=== PATIENT | male | born 1970 | race Caucasian/White ===

== ENCOUNTER 2018-08-06 14:11 | Observation (INO) | payer OTHER ==
[2018-08-06 14:55] LABS: Basophils % (A) 0 %; Eosinophils # (A) 0.2 k/uL (0-0.7); Eosinophils % (A) 4 %; HCT 48.2 % (39.0-53.0); HGB 17.4 gm/dL (13.0-17.5); Lymphocytes # (A) 1.1 k/uL (1.0-4.8); Lymphocytes % (A) 22 %; MCH 31.7 pg (25.0-35.0); MCHC 36.1 g/dL (31.0-37.0); MCV 87.7 fL (80.0-100.0); Mean Platelet Volume 6.8; Monocytes # (A) 0.3 k/uL (0-1.0); Monocytes % (A) 5 %; Neutrophils # (A) 3.4 k/uL (1.3-7.7); Neutrophils % (A) 68 %; Platelet Count 145 k/uL (150-450); RDW 12.4 % (11.5-15.5); WBC 5.1 k/uL (3.8-10.6)
[2018-08-06] MEDS ORDERED: ASPIRIN 325 MG TAB PO STA (15:02)
[2018-08-06 15:07] LABS: ALT 47 U/L (21-72); AST 28 U/L (17-59); Albumin 4.4 g/dL (3.5-5.0); Alkaline Phosphatase 46 U/L (38-126); Anion Gap 8 mmol/L; Blood Urea Nitrogen 14 mg/dL (9-20); Calcium 9.4 mg/dL (8.4-10.2); Carbon Dioxide 26 mmol/L (22-30); Chloride 107 mmol/L (98-107); Glucose 144 mg/dL (74-99); Magnesium 2.1 mg/dL (1.6-2.3); Potassium 4.1 mmol/L (3.5-5.1); Sodium 141 mmol/L (137-145); Total Bilirubin 0.8 mg/dL (0.2-1.3); Total Protein 7.4 g/dL (6.3-8.2)
[2018-08-06 15:08] LABS: Partial Thromboplastin Time 24.2 sec (22.0-30.0)
[2018-08-06 15:16] LABS: Creatine Kinase 46 U/L (55-170)
--- NOTE | 2018-08-06 15:23 | XR ---
EXAMINATION TYPE: XR chest 2V DATE OF EXAM: 08/06/2018 COMPARISON: NONE HISTORY: Chest pain TECHNIQUE: Frontal and lateral views of the chest are obtained. FINDINGS: There is no focal air space opacity, pleural effusion, or pneumothorax seen. The cardiac silhouette size is within normal limits. The osseous structures are intact. IMPRESSION: No acute cardiopulmonary process.
[2018-08-06 15:29] LABS: Creatine Kinase MB 0.5 ng/mL (0.0-2.4); Troponin I <0.012 ng/mL (0.000-0.034)
--- NOTE | 2018-08-06 15:51 | ED ---
Chest Pain HPI - General Source: patient, RN notes reviewed, old records reviewed Mode of arrival: ambulatory Limitations: no limitations <Marla Al - Last Filed: 08/06/18 17:55> <Pablo Garland - Last Filed: 08/06/18 18:16> - General Chief Complaint: Chest Pain Stated Complaint: Chest pressure/lt arm pain Time Seen by Provider: 08/06/18 14:52 - History of Present Illness Initial Comments: 40-year-old male presents emergency department today with 2 days of dizziness, complaints of chest pain, pain range on the left arm. He reports he's also had some visual changes complained of intermittent blurry vision. Patient states that he's had no recent fevers or chills. He denies any cough. Patient states that he has a family history of heart disease. He is a smoker. He reports that he has history of high cholesterol but has been off of his high cholesterol medication for quite some time. (Marla Al) - Related Data Home Medications Medication Instructions Recorded Confirmed Aspirin [[place] Aspirin EC] 81 mg PO DAILY 08/06/18 08/06/18 Ibuprofen [Motrin Ib] 600 mg PO Q8HR 08/06/18 08/06/18 Ketoconazole 2% Cream [Nizoral 2%] 1 applic TOPICAL DAILY PRN 08/06/18 08/06/18 Allergies Allergy/AdvReac Type Severity Reaction Status Date / Time gel capsules AdvReac Abdominal Uncoded 08/06/18 14:20 Pain Review of Systems ROS Other: All systems not noted in ROS Statement are negative. <Marla Al - Last Filed: 08/06/18 17:55> ROS Other: All systems not noted in ROS Statement are negative. <Pablo Garland - Last Filed: 08/06/18 18:16> ROS Statement: Those systems with pertinent positive or pertinent negative responses have been documented in the HPI. EKG Findings - EKG Comments: EKG Findings:: EKG performed at 1420 and she was sinus tachycardia, right superior axis deviation. Clear brownish black. No specific ST-T wave antibiotic. Given normal EKG noted. Ventricular rate of 103 bpm. Was 192. QRS duration 80 ms. QT QTc is 352/461 ms. <Marla Al - Last Filed: 08/06/18 17:55> Past Medical History Past Medical History: No Reported History History of Any Multi-Drug Resistant Organisms: None Reported Past Surgical History: No Surgical Hx Reported Past Psychological History: No Psychological Hx Reported Smoking Status: Never smoker Past Alcohol Use History: Occasional Past Drug Use History: None Reported <Marcelle Alily - Last Filed: 08/06/18 17:55> General Exam Limitations: no limitations General appearance: alert, in no apparent distress Head exam: Present: atraumatic, normocephalic, normal inspection Eye exam: Present: normal appearance, PERRL, EOMI. Absent: scleral icterus, conjunctival injection, periorbital swelling ENT exam: Present: normal exam, mucous membranes moist Neck exam: Present: normal inspection. Absent: tenderness, meningismus, lymphadenopathy Respiratory exam: Present: normal lung sounds bilaterally Cardiovascular Exam: Present: regular rate, normal rhythm, normal heart sounds. Absent: systolic murmur, diastolic murmur, rubs, gallop, clicks GI/Abdominal exam: Present: soft, normal bowel sounds. Absent: distended, tenderness, guarding, rebound, rigid Extremities exam: Present: normal inspection, full ROM, normal capillary refill. Absent: tenderness, pedal edema, joint swelling, calf tenderness Back exam: Present: normal inspection Neurological exam: Present: alert, oriented X3, CN II-XII intact Psychiatric exam: Present: normal affect, normal mood Skin exam: Present: warm, dry, intact, normal color. 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 Patient did present with complaints of intermittent episodes of chest pain with some apparent radiation to left arm. He currently is pain-free. He does have a history of high cholesterol high triglycerides. He denies history of smoking. He does have a family history of cardiovascular disease. I do agree with the assessment and plan patient will be admitted for evaluation of chest pain. Cardiology will be consulted. I did discuss case with Dr. chiu (Pablo Garland) Chest Pain [facility] <Marla Al - Last Filed: 08/06/18 17:55> <Pablo Garland - Last Filed: 08/06/18 18:16> - MDM 40-year-old male presents return today for chest pain, states pains draining out his arm. Positive risk factors including hypercholesterol, history of smoking. Family history of heart disease. This time troponin is negative. He also complained of some blurry vision. CT of the brain was completed. This is negative for any acute process. Discussed with Hawk warner the Patient further evaluation due to chest pain. In consult to cardiology. Brain computed tomography scan for any acute process. Chest x-rays negative for any acute cardio pulmonary process. (Marla Al) Disposition Is patient prescribed a controlled substance at d/c from ED?: No Time of Disposition: 17:56 <Mrala Al - Last Filed: 08/06/18 17:55> <Pablo Garland - Last Filed: 08/06/18 18:16> Clinical Impression: Chest pain Disposition: ADMITTED IP TO THIS [facility] Condition: Stable Referrals: Nonstaff,Physician [Primary Care Provider] - 1-2 days
[2018-08-06] MEDS: SODIUM CHLORIDE 0.9% 1,000 ML IV SCH (16:10)
--- NOTE | 2018-08-06 16:14 | CT ---
EXAMINATION TYPE: CT brain wo con DATE OF EXAM: 08/06/2018 COMPARISON: None HISTORY: 48-year-old male Vision changes, left arm numbness and hypertension. TECHNIQUE: Examination was done in axial plane without intravenous contrast. Coronal and sagittal r econstructions performed. CT DLP: 1129.4 mGycm Automated exposure control for dose reduction was used. FINDINGS: There is no evidence of acute intracranial hemorrhage, acute ischemic changes, mass, mass-effect, or extra-axial fluid collection. There is no effacement of cerebral sulci or basal subarachnoid cister ns. There is no hydrocephalus. There is no midline shift. White-white matter distinction is preserv ed. 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 Trace mucosal thickening right maxillary sinus and additional trace mucosal thickening scattered thro ughout the ethmoid air cells. Orbits and globes are intact. IMPRESSION: No acute intracranial abnormality seen. If there are focal neurologic deficits which persist, conside r follow-up CT or MRI.
[2018-08-06] MEDS ORDERED: NITROGLYCERIN SL TABS 0.4 MG TAB SUBLINGUAL PRN (17:57)
[2018-08-06] MEDS ORDERED: HEPARIN SOD,PORK IN 0.45% NACL 25,000 UNIT in 0.45% NACL 1 500ML.BAG IV SCH ×2 (18:00→18:30)
[2018-08-06] MEDS ORDERED: HEPARIN SODIUM,PORCINE 5,000 UNIT/ML 1 ML VIAL IV PRN (18:23)
[2018-08-06] MEDS ORDERED: HEPARIN SODIUM,PORCINE 5,000 UNIT/ML 1 ML VIAL IV ONE (18:23)
[2018-08-06 20:04] VITALS: RESP 18
[2018-08-06 20:12] VITALS: BMI 31.3
[2018-08-06 20:46] LABS: Basophils % (A) 1 %; Eosinophils # (A) 0.2 k/uL (0-0.7); Eosinophils % (A) 3 %; HCT 49.2 % (39.0-53.0); HGB 16.2 gm/dL (13.0-17.5); Lymphocytes # (A) 2.1 k/uL (1.0-4.8); Lymphocytes % (A) 31 %; MCHC 32.9 g/dL (31.0-37.0); Mean Platelet Volume 7.5; Monocytes # (A) 0.3 k/uL (0-1.0); Monocytes % (A) 5 %; Neutrophils # (A) 3.9 k/uL (1.3-7.7); Neutrophils % (A) 59 %; Platelet Count 165 k/uL (150-450); RDW 12.9 % (11.5-15.5); WBC 6.6 k/uL (3.8-10.6)
[2018-08-06 20:57] LABS: INR 1.1 (<1.2); Partial Thromboplastin Time 50.8 sec (22.0-30.0); Prothrombin Time 10.5 sec (9.0-12.0)
[2018-08-06 21:07] LABS: Creatine Kinase 44 U/L (55-170)
[2018-08-06 21:21] LABS: Creatine Kinase MB 0.4 ng/mL (0.0-2.4); Troponin I <0.012 ng/mL (0.000-0.034)
[2018-08-07 00:52] LABS: Creatine Kinase 42 U/L (55-170)
[2018-08-07 01:06] LABS: Creatine Kinase MB 0.3 ng/mL (0.0-2.4); Troponin I <0.012 ng/mL (0.000-0.034)
[2018-08-07] MEDS: SODIUM CHLORIDE 0.9% 1,000 ML IV SCH (02:39)
[2018-08-07 03:41] LABS: Appearance,Urine Cloudy (Clear); Bilirubin,Urine Negative (Negative); Blood,Urine Negative (Negative); Color,Urine Yellow; Glucose,Urine (UA) Negative (Negative); Ketones,Urine Negative (Negative); Leukocyte Esterase,Urine Negative (Negative); Mucus,Urine Many /hpf; Nitrite,Urine Negative (Negative); Protein,Urine 1+ (Negative); RBC,Urine 3 /hpf (0-5); Specific Gravity,Urine 1.027 (1.001-1.035); WBC,Urine 1 /hpf (0-5)
[2018-08-07] MEDS: ACETAMINOPHEN TAB 325 MG TAB PO PRN ×2 (06:05→12:20)
[2018-08-07 07:17] LABS: Basophils % (A) 1 %; Eosinophils # (A) 0.1 k/uL (0-0.7); Eosinophils % (A) 2 %; HCT 48.9 % (39.0-53.0); Lymphocytes # (A) 1.7 k/uL (1.0-4.8); Lymphocytes % (A) 29 %; MCHC 32.8 g/dL (31.0-37.0); MCV 91.5 fL (80.0-100.0); Mean Platelet Volume 7.9; Monocytes # (A) 0.3 k/uL (0-1.0); Monocytes % (A) 5 %; Neutrophils # (A) 3.5 k/uL (1.3-7.7); Neutrophils % (A) 61 %; Platelet Count 164 k/uL (150-450); RBC 5.34 m/uL (4.30-5.90); RDW 12.7 % (11.5-15.5); WBC 5.8 k/uL (3.8-10.6)
[2018-08-07 07:39] LABS: Cholesterol 209 mg/dL (<200); HDL Cholesterol 25 mg/dL (40-60); LDL Cholesterol,Calculated 121 mg/dL (0-99); Triglycerides 314 mg/dL (<150)
[2018-08-07] MEDS ORDERED: ASPIRIN 325 MG TAB PO SCH (09:00)
--- NOTE | 2018-08-07 09:58 | P.CRDCN ---
History of Present Illness History of present illness: This is a pleasant 48-year-old male past medical history significant for dyslipidemia and migraine headaches. He denies history of coronary artery disease, hypertension or diabetes mellitus. 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 We have been asked to see him in consultation for chest pain. He states for the last couple of days he has been feeling intermittently dizzy. Then yesterday he started feeling like his vision in his left eye was altered and blurry. He became alarmed he may be having a stroke due to his mother having had one that started with vision changes. He checked his bp at home and it was 135/88 which he feels is high for him sine his baseline is 118/70's. Subsequently thereafter, he started feeling a pressure in his mid-sternal region with radiation to the left precordial region and tingling down the left arm. His discomfort lasted less than a minute but returned last night across the upper chest. He continues to have pressure in the chest at the time of my exam that has not subsided. He also complains of an ongoing headache and pressure behind his eyes. He denies shortness of breath, nausea, vomiting, palpitations or diaphoresis. He also denies PND, orthopnea, cough, fever or chills. EKG reveals sinus mechanism heart rate 103 with incomplete right bundle branch block. No old EKG. Chest xray negative for an acute cardiopulmonary process. CT brain negative for an acute intracranial process. Laboratory data reviewed, WBC 5.8, hemoglobin 16, platelets 164, sodium 141, potassium 4.1, creatinine 0.74, magnesium 2.1, cardiac enzymes negative 3, LDL 121, HDL 25, triglycerides 314 and total cholesterol 209. He takes no cardiac medications. Risk factors for coronary artery disease include dyslipidemia. At the time of my exam: CONSTITUTIONAL: Denies fever. Denies chills. EYES: Denies blurred vision. Denies vision changes. Denies eye pain. EARS, NOSE, MOUTH & THROAT: Denies headache. Denies sore throat. Denies ear pain. CARDIOVASCULAR: Denies chest pain. Denies shortness of breath. Denies orthopnea. Denies PND. Denies palpitations. RESPIRATORY: Denies cough. GASTROINTESTINAL: Denies abdominal pain. Denies diarrhea. Denies constipation. Denies nausea. Denies vomiting. MUSCULOSKELETAL: Denies myalgias. INTEGUMENTARY: Denies pruitis. Denies rash. NEUROLOGIC: Denies numbness. Denies tingling. Denies weakness. PSYCHIATRIC: Denies anxiety. Denies depression. ENDOCRINE: Denies fatigue. Denies weight change. Denies polydipsia. Denies polyurina. GENITOURINARY: Denies burning, hematuria or urgency with micturation. HEMATOLOGIC: Denies history of anemia. Denies bleeding. Blood pressure 131/63 heart rate 91 afebrile maintaining oxygen saturation on room air GENERAL: This is a 48-year-old male in no apparent distress at the time of my examination. HEENT: Head is atraumatic, normocephalic. Pupils are equal, round. Sclerae anicteric. Conjunctivae are clear. Mucous membranes of the mouth are moist. Neck is supple. There is no jugular venous distention. No carotid bruit is heard. LUNGS: Clear to auscultation no wheezes, rales or rhonchi. No chest wall tenderness is noted on palpation or with deep breathing. HEART: Regular rate and rhythm without murmurs, rubs or gallops. S1 and S2 heard. ABDOMEN: Soft, nontender. Bowel sounds are heard. No organomegaly noted. EXTREMITIES: No evidence of peripheral edema and no calf tenderness noted. VASCULAR: Radial and dorsalis pedis pulses palpated, no evidence of clubbing. NEUROLOGIC: Patient is awake, alert and oriented x3. ASSESSMENT Chest pain, atypical. An acute coronary event has been ruled out with no EKG evidence of ischemia and negative cardiac enzymes. Headache and visual disturbances Dyslipidemia, uncontrolled. Unable to tolerate lipitor in the past PLAN An acute coronary event has been ruled out with no EKG evidence of ischemia and negative cardiac enzymes. Obtain stress echocardiogram to assess for stress induced cardiac ischemia. If stress test is normal he is stable from a cardiac perspective. Lifestyle modifications recommended for lowering of LDL cholesterol. Ongoing medical management of neurologic symptoms. Thank you kindly for this consultation. Nurse Practitioner note has been reviewed, I agree with a documented findings and plan of care. Patient was seen and examined. Past Medical History Past Medical History: No Reported History Additional Past Medical History / Comment(s): migraines History of Any Multi-Drug Resistant Organisms: None Reported Past Surgical History: No Surgical Hx Reported Smoking Status: Never smoker - Past Family History Mother Family Medical History: CVA/TIA, Hyperlipidemia, Hypertension Father Family Medical History: Unable to Obtain Medications and Allergies Home Medications Medication Instructions Recorded Confirmed Type Aspirin [[place] Aspirin EC] 81 mg PO DAILY 08/06/18 08/06/18 History Ibuprofen [Motrin Ib] 600 mg PO Q8HR 08/06/18 08/06/18 History Ketoconazole 2% Cream [Nizoral 2%] 1 applic TOPICAL DAILY PRN 08/06/18 08/06/18 History Allergies Allergy/AdvReac Type Severity Reaction Status Date / Time gel capsules AdvReac Abdominal Uncoded 08/06/18 19:58 Pain Physical Exam Vitals: Vital Signs Temp Pulse Pulse Pulse Resp BP BP 08/07/18 07:25 97.8 F 91 18 131/63 08/07/18 04:00 18 08/07/18 03:40 97.3 F L 88 18 115/79 08/07/18 00:00 18 08/06/18 23:30 97.5 F L 90 18 135/76 08/06/18 20:00 18 08/06/18 19:15 98.4 F 86 18 140/89 08/06/18 18:57 85 16 120/93 08/06/18 18:00 87 16 129/99 08/06/18 17:00 90 16 129/93 08/06/18 16:12 20 08/06/18 14:34 94 08/06/18 14:16 99.1 F 102 H 18 131/86 Pulse Ox 08/07/18 07:25 96 08/07/18 04:00 08/07/18 03:40 95 08/07/18 00:00 08/06/18 23:30 97 08/06/18 20:00 08/06/18 19:15 96 08/06/18 18:57 97 08/06/18 18:00 97 08/06/18 17:00 96 08/06/18 16:12 98 08/06/18 14:34 08/06/18 14:16 100 Intake and Output 08/06/18 08/07/18 08/07/18 22:59 06:59 14:59 Intake Total 156.234 Balance 156.234 Intake: Intake, IV Titration 156.234 Amount Heparin Sod,Pork in 0.45% 156.234 NaCl 25,000 unit In 0.45 % NaCl 1 500ml.bag @ 9.6 UNITS/KG/HR 20.03 mls/hr IV .Q24H [facility] Rx#: [id number] Other: # Voids 1 Weight 101.9 kg Results 08/07/18 07:02 08/06/18 14:40 Cardiac Enzymes 08/06/18 08/06/18 08/06/18 Range/Units 14:40 14:40 20:31 AST 28 (17-59) U/L CK-MB (CK-2) 0.5 0.4 (0.0-2.4) ng/mL Troponin I <0.012 <0.012 (0.000-0.034) ng/mL 08/07/18 Range/Units 00:10 AST (17-59) U/L CK-MB (CK-2) 0.3 (0.0-2.4) ng/mL Troponin I <0.012 (0.000-0.034) ng/mL Coagulation 08/06/18 08/06/18 08/07/18 Range/Units 14:40 20:31 00:10 PT 10.0 10.5 (9.0-12.0) sec APTT 24.2 50.8 H 31.8 H (22.0-30.0) sec 08/07/18 Range/Units 07:02 PT (9.0-12.0) sec APTT 33.5 H (22.0-30.0) sec Lipids 08/07/18 Range/Units 07:02 Triglycerides 314 H (<150) mg/dL Cholesterol 209 H (<200) mg/dL HDL Cholesterol 25 L (40-60) mg/dL CBC 08/06/18 08/06/18 08/07/18 Range/Units 14:40 20:31 07:02 WBC 5.1 6.6 5.8 (3.8-10.6) k/uL RBC 5.50 5.40 5.34 (4.30-5.90) m/uL Hgb 17.4 16.2 16.0 (13.0-17.5) gm/dL Hct 48.2 49.2 48.9 (39.0-53.0) % Plt Count 145 L 165 164 (150-450) k/uL Comprehensive Metabolic Panel 08/06/18 Range/Units 14:40 Sodium 141 (137-145) mmol/L Potassium 4.1 (3.5-5.1) mmol/L Chloride 107 (98-107) mmol/L Carbon Dioxide 26 (22-30) mmol/L BUN 14 (9-20) mg/dL Creatinine 0.74 (0.66-1.25) mg/dL Glucose 144 H (74-99) mg/dL Calcium 9.4 (8.4-10.2) mg/dL AST 28 (17-59) U/L ALT 47 (21-72) U/L Alkaline Phosphatase 46 (38-126) U/L Total Protein 7.4 (6.3-8.2) g/dL Albumin 4.4 (3.5-5.0) g/dL Current Medications Generic Name Dose Route Start Last Admin Trade Name Freq PRN Reason Stop Dose Admin Acetaminophen 650 mg 08/06/18 22:34 08/07/18 06:05 Tylenol Tab PO 650 mg Q4HR PRN Administration Fever and/ or Pain Aspirin 325 mg 08/07/18 09:00 Aspirin PO DAILY [facility] Heparin Sodium (Porcine) 0 unit 08/06/18 18:23 Heparin IV PER PROTOCOL PRN Low PTT Protocol Sodium Chloride 1,000 mls @ 100 mls/hr 08/06/18 15:15 08/07/18 02:39 Saline 0.9% IV Not Given .Q10H [facility] Heparin Sodium/Sodium Chloride 500 mls @ 20.03 mls/hr 08/06/18 18:30 02:40 25,000 unit/ Sodium Chloride IV 12.6 units/kg/hr .Q24H [facility] 26.29 mls/hr Titration Protocol 9.6 UNITS/KG/HR Nitroglycerin 0.4 mg 08/06/18 17:57 Nitrostat SUBLINGUAL Q5M PRN Chest Pain Intake and Output 08/06/18 08/07/18 08/07/18 22:59 06:59 14:59 Intake Total 156.234 Balance 156.234 Intake: Intake, IV Titration 156.234 Amount Heparin Sod,Pork in 0.45% 156.234 NaCl 25,000 unit In 0.45 % NaCl 1 500ml.bag @ 9.6 UNITS/KG/HR 20.03 mls/hr IV .Q24H [facility] Rx#: [id number] Other: # Voids 1 Weight 101.9 kg 08/07/18 07:02 08/06/18 14:40
--- NOTE | 2018-08-07 13:10 | ECHOF ---
Referral Reason:cp MEASUREMENTS -------- HEIGHT: 162.6 cm WEIGHT: 101.6 kg BP: 131/63 RVIDd: 2.6 cm (< 3.3) IVSd: 1.0 cm (0.6 - 1.1) LVIDd: 4.2 cm (3.9 - 5.3) LVPWd: 1.1 cm (0.6 - 1.1) IVSs: 1.3 cm LVIDs: 3.7 cm LVPWs: 1.1 cm LA Diam: 3.1 cm (2.7 - 3.8) LAESV Index (A-L): 13.49 ml/m Ao Diam: 3.1 cm (2.0 - 3.7) AV Cusp: 1.8 cm (1.5 - 2.6) LA Diam: 3.0 cm (2.7 - 3.8) MV EXCURSION: 21.150 mm (> 18.000) MV EF SLOPE: 121 mm/s (70 - 150) EPSS: 0.4 cm MV E Richard: 0.61 m/s MV DecT: 187 ms MV A Richard: 0.72 m/s MV E/A Ratio: 0.85 RAP: 5.00 mmHg RVSP: 16.00 mmHg FINDINGS -------- Sinus rhythm. This was a technically good study. LV size, wall thickness and systolic function are normal, with an EF greater than 55%. The left cyndee tricular size is normal. The right ventricle is normal in size. The left atrial size is normal. Normal LA size by volume 22+/-6 ml/m2. The right atrial size is normal. There is mild aortic valve sclerosis. There is no evidence of aortic regurgitation. The mitral valve is normal. Mild mitral regurgitation is present. Mild tricuspid regurgitation present. There is no evidence of pulmonary hypertension. The right v entricular systolic pressure, as measured by Doppler, is 16.00mmHg. There is no pulmonic regurgitation present. The aortic root size is normal. There is no pericardial effusion. CONCLUSIONS -------- 1. Sinus rhythm. 2. This was a technically good study. 3. LV size, wall thickness and systolic function are normal, with an EF greater than 55%. 4. The left ventricular size is normal. 5. The left atrial size is normal. 6. There is mild aortic valve sclerosis. 7. Mild mitral regurgitation is present. 8. Mild tricuspid regurgitation present. 9. There is no evidence of pulmonary hypertension. 10. There is no pulmonic regurgitation present. 11. The aortic root size is normal. 12. There is no pericardial effusion. MARBLE INSTALLATION HELPER: Juliet Lafleur RDCS
--- NOTE | 2018-08-07 14:32 | ECHOS ---
STRESS ECHOCARDIOGRAM INDICATIONS: Chest pain. MEDICATIONS: None. BASELINE HEART RATE: 95 BASELINE BLOOD PRESSURE: 106/60 MAXIMUM HEART RATE: 162 MAXIMUM BLOOD PRESSURE: 201/80 85% MPHR: 146 100% MPHR: 172 METS: 10.5 MAXIMUM STAGE REACHED: III TOTAL EXERCISE TIME: 9:09 CLINICAL INFORMATION: Baseline rhythm is sinus mechanism, rate 95, normal axis and intervals, normal electrocardiogram, baseline blood pressure 106/60 mmHg. Patient exercised on Simon protocol for 9 minutes, 9 seconds reaching a peak rate 162 beats per minute which is equal to 94% maximum predicted heart rate. Peak blood pressure 201/80 mmHg. Test was terminated due to fatigue. There was no chest pain. Electrocardiograph monitoring revealed no evidence of diagnostic ischemic ST deviation. FINDINGS: Baseline echocardiogram revealed normal wall thickening and motion. At peak exercise, there was normal wall motion augmentation with no hypokinesis or dyskinesis. CONCLUSION: 1. Good exercise tolerance with normal cardiac response to exercise. 2. Normal stress echocardiogram with no evidence of stress induced ischemia. MMODL / IJN: [id number] /
--- NOTE | 2018-08-07 15:10 | P.HPIM ---
Review of Systems 48yrs old male with past medical history of migraine who presents because of central chest pain, radiating to the left side, pressure like in feeling. That lasted for about a minute. With no associated dyspnea. No sweating. No nausea vomiting. On admission he had negative cardiac enzymes. Patient has been evaluated by multiple cut off saw operator who recommended stress test for him. Treated stress echo came back negative. Cardiology team. The patient for discharge. Patient currently is chest pain-free as it is 0/10. No other complaint. Patient was cleared by cardiology team for discharge. Lungs and management plan was discussed with the patient and he verbalized understanding and acceptance. Patient is found stable and can be discharged home however he needs follow-up as an outpatient. Past Medical History Past Medical History: No Reported History Additional Past Medical History / Comment(s): migraines History of Any Multi-Drug Resistant Organisms: None Reported Past Surgical History: No Surgical Hx Reported Smoking Status: Never smoker - Past Family History Mother Family Medical History: CVA/TIA, Hyperlipidemia, Hypertension Father Family Medical History: Unable to Obtain Medications and Allergies Home Medications Medication Instructions Recorded Confirmed Type Aspirin [[place] Aspirin EC] 81 mg PO DAILY 08/06/18 08/06/18 History Ibuprofen [Motrin Ib] 600 mg PO Q8HR 08/06/18 08/06/18 History Ketoconazole 2% Cream [Nizoral 2%] 1 applic TOPICAL DAILY PRN 08/06/18 08/06/18 History Allergies Allergy/AdvReac Type Severity Reaction Status Date / Time gel capsules AdvReac Abdominal Uncoded 08/06/18 19:58 Pain Physical Exam Vitals: Vital Signs Temp Pulse Pulse Resp BP BP Pulse Ox 08/07/18 11:45 98.3 F 101 H 18 118/82 96 08/07/18 07:25 97.8 F 91 18 131/63 96 08/07/18 04:00 18 08/07/18 03:40 97.3 F L 88 18 115/79 95 08/07/18 00:00 18 08/06/18 23:30 97.5 F L 90 18 135/76 97 08/06/18 20:00 18 08/06/18 19:15 98.4 F 86 18 140/89 96 08/06/18 18:57 85 16 120/93 97 08/06/18 18:00 87 16 129/99 97 08/06/18 17:00 90 16 129/93 96 08/06/18 16:12 20 98 Intake and Output 08/06/18 08/07/18 08/07/18 22:59 06:59 14:59 Intake Total 156.234 Balance 156.234 Intake: Intake, IV Titration 156.234 Amount Heparin Sod,Pork in 0.45% 156.234 NaCl 25,000 unit In 0.45 % NaCl 1 500ml.bag @ 9.6 UNITS/KG/HR 20.03 mls/hr IV .Q24H [facility] Rx#: [id number] Other: Voiding Method Toilet # Voids 1 Weight 101.9 kg GENERAL: The patient is alert and oriented x3, not in any acute distress. Well developed, well nourished. HEENT: Pupils are round and equally reacting to light. EOMI. No scleral icterus. No conjunctival pallor. Normocephalic, atraumatic. No pharyngeal erythema. No thyromegaly. CARDIOVASCULAR: S1 and S2 present. No murmurs, rubs, or gallops. PULMONARY: Chest is clear to auscultation, no wheezing or crackles. ABDOMEN: Soft, nontender, nondistended, normoactive bowel sounds. No palpable organomegaly. MUSCULOSKELETAL: No joint swelling or deformity. EXTREMITIES: No cyanosis, clubbing, or pedal edema. NEUROLOGICAL: Gross neurological examination did not reveal any focal deficits. Cranial nerves are grossly intact. Motor sensation is 5/5 in all extremities. Sensation is intact. Gait is normal SKIN: No rashes. Results CBC & Chem 7: 08/07/18 07:02 08/06/18 14:40 Labs: Abnormal Lab Results - Last 24 Hours (Table) 08/06/18 08/06/18 08/06/18 Range/Units 14:40 14:40 14:40 Plt Count 145 L (150-450) k/uL APTT (22.0-30.0) sec Glucose 144 H (74-99) mg/dL Total Creatine Kinase 46 L (55-170) U/L Triglycerides (<150) mg/dL Cholesterol (<200) mg/dL LDL Cholesterol, Calc (0-99) mg/dL HDL Cholesterol (40-60) mg/dL Urine Protein (Negative) Urine Mucus (None) /hpf 08/06/18 08/06/18 08/07/18 Range/Units 20:31 20:31 00:10 Plt Count (150-450) k/uL APTT 50.8 H (22.0-30.0) sec Glucose (74-99) mg/dL Total Creatine Kinase 44 L 42 L (55-170) U/L Triglycerides (<150) mg/dL Cholesterol (<200) mg/dL LDL Cholesterol, Calc (0-99) mg/dL HDL Cholesterol (40-60) mg/dL Urine Protein (Negative) Urine Mucus (None) /hpf 08/07/18 08/07/18 08/07/18 Range/Units 00:10 02:00 07:02 Plt Count (150-450) k/uL APTT 31.8 H (22.0-30.0) sec Glucose (74-99) mg/dL Total Creatine Kinase (55-170) U/L Triglycerides 314 H (<150) mg/dL Cholesterol 209 H (<200) mg/dL LDL Cholesterol, Calc 121 H (0-99) mg/dL HDL Cholesterol 25 L (40-60) mg/dL Urine Protein 1+ H (Negative) Urine Mucus Many H (None) /hpf 08/07/18 Range/Units 07:02 Plt Count (150-450) k/uL APTT 33.5 H (22.0-30.0) sec Glucose (74-99) mg/dL Total Creatine Kinase (55-170) U/L Triglycerides (<150) mg/dL Cholesterol (<200) mg/dL LDL Cholesterol, Calc (0-99) mg/dL HDL Cholesterol (40-60) mg/dL Urine Protein (Negative) Urine Mucus (None) /hpf Thrombosis Risk Factor Assmnt - Choose All That Apply Each Factor Represents 1 point: Age 41-60 years Thrombosis Risk Factor Assessment Total Risk Factor Score: 1 Thrombosis Risk Factor Assessment Level: Low Risk Assessment and Plan Plan: This is a pleasant 48 years old male who presents with chest pain. Has been followed by multiple cut off saw operator with negative stress test multiple cut off saw operator cleared him for discharge. Patient is currently chest pain free. No other new complaints.
[2018-08-07 15:30] VITALS: BP 123/78; PULSE 98; TEMP 98.4
--- NOTE | 2018-08-07 21:07 | P.DS ---
Providers Date of admission: 08/06/18 18:24 Attending physician: Dedrick Rendon Consults: 08/06/18 17:57 Consult Physician Urgent Consulting Provider: Etienne Payton Consult Reason/Comments: chest pain Do you want consulting provider notified?: Yes Primary care physician: Physician Nonstaff Hospital Course: Please review my H&P from today. Patient noticed his cholesterol mildly elevated. He said Lipitor can cause him worsening migraine and he preferred something else. Simvastatin is offered for him and he agrees to try it Patient feels normal state and he wants to be discharged. He said his PCP at her records and he wants to switch her to somebody in town. Contact information for Dr. Rosa is provided for the patient and he said he will call and make an appointment tomorrow. Patient was instructed to follow up with his PCP within one week and he verbalized understanding and acceptance. Patient Condition at Discharge: Stable Plan - Discharge Summary New Discharge Prescriptions: New Acetaminophen Tab [Tylenol] 650 mg PO Q4HR PRN #10 tab PRN Reason: Fever And/ Or Pain Aspirin 81 mg PO DAILY #30 tab Simvastatin [Zocor] 10 mg PO HS #30 tab Continue Ibuprofen [Motrin Ib] 600 mg PO Q8HR Aspirin [[place] Aspirin EC] 81 mg PO DAILY Ketoconazole 2% Cream [Nizoral 2%] 1 applic TOPICAL DAILY PRN PRN Reason: Itching Discharge Medication List Aspirin [[place] Aspirin EC] 81 mg PO DAILY 08/06/18 [History] Ibuprofen [Motrin Ib] 600 mg PO Q8HR 08/06/18 [History] Ketoconazole 2% Cream [Nizoral 2%] 1 applic TOPICAL DAILY PRN 08/06/18 [History] Acetaminophen Tab [Tylenol] 650 mg PO Q4HR PRN #10 tab 08/07/18 [Rx] Aspirin 81 mg PO DAILY #30 tab 08/07/18 [Rx] Simvastatin [Zocor] 10 mg PO HS #30 tab 08/07/18 [Rx] Follow up Appointment(s)/Referral(s): Nonstaff,Physician [Primary Care Provider] - 1-2 days Ziggy Paredes MD [REFERRING] - 1 Week Patient Instructions/Handouts: Low Fat Diet (ED), Heart Healthy Diet (ED), Mediterranean Diet (DC) Activity/Diet/Wound Care/Special Instructions: Cardiac diet Activity as tolerated Discharge Disposition: HOME SELF-CARE
== END 2018-08-07 15:35 | disposition home or self-care (01) ==
LOC: EC 14:11 → 1SOBS 18:24
PROVIDERS: ADMIT Hospitalist; ATTEND Hospitalist
DX: R07.89 Other chest pain (principal); E78.00 Pure hypercholesterolemia, unspecified; I45.10 Unspecified right bundle-branch block; G43.909 Migraine, unspecified, not intractable, without status migrainosus; E78.5 Hyperlipidemia, unspecified; H53.8 Other visual disturbances; R42 Dizziness and giddiness; Z82.49 Family history of ischemic heart disease and other diseases of the circulatory system; Z79.82 Long term (current) use of aspirin; Z79.1 Long term (current) use of non-steroidal anti-inflammatories (NSAID); Z88.8 Allergy status to other drugs, medicaments and biological substances
CPT/HCPCS: 96366 ×2; 96376; 96365; 99285; 36415; 93005; 93306; 93351; 80061; 80053; 82550 ×2; 82553 ×2; 83735; 84484 ×2; 85025 ×2; 85610; 85730 ×2; 81001; 71046; 70450; G0378 ×2; J1644 ×2